=== PATIENT | female | born 1960 | race Caucasian/White ===

== ENCOUNTER 2019-03-04 20:29 | Emergency (ER) | payer OTHER ==
[~2019-03-04] VITALS: Ht 152.4 cm; Wt 90.7 kg
[2019-03-04] MEDS ORDERED: HYZAAR 100-12.1 EACH PO (20:58)
== END 2019-03-04 21:24 | disposition home or self-care (01) ==
LOC: ER 20:29
DX: S20.222A Contusion of left back wall of thorax, initial encounter (principal); S20.221A Contusion of right back wall of thorax, initial encounter; V49.9XXA Car occupant (driver) (passenger) injured in unspecified traffic accident, initial encounter; Y93.89 Activity, other specified; Y92.488 Other paved roadways as the place of occurrence of the external cause; Y99.8 Other external cause status

== ENCOUNTER 2021-12-26 13:43 | Outpatient (CLI) | payer OTHER ==
[~2021-12-26 13:43] MED LIST: HYZAAR 100-12.1 EACH PO
== END 2021-12-26 14:01 | disposition home or self-care (01) ==
LOC: RAD 13:43
PROVIDERS: ATTEND Otolaryngology Otolaryngology/Facial Plastic Surgery
DX: J34.2 Deviated nasal septum (principal); J32.4 Chronic pansinusitis